=== PATIENT | male | born 1980 | race African-American/Black ===

== ENCOUNTER 2022-10-26 03:06 | Emergency (ER) | payer BC ==
[2022-10-26] MEDS ORDERED: HYDROmorphone 1 MG/ML Syringe IM ONE (03:26)
[2022-10-26] MEDS ORDERED: Ketorolac 60 MG/2 ML SDV IM ONE (03:26)
[2022-10-26] MEDS ORDERED: Cyclobenzaprine 10 MG Tab PO ONE (03:27)
[2022-10-26] MEDS ORDERED: HYDROmorphone 1 MG/ML Syringe IVPUSH ONE ×2 (04:09→10:27)
[2022-10-26] MEDS ORDERED: Ketorolac 30 MG/ML SDV IVPUSH ONE (04:10)
[2022-10-26] MEDS ORDERED: methylPREDNISolone Sodium Succinate 125 MG/2 ML SDV IVPUSH ONE (09:29)
[2022-10-26] MEDS ORDERED: HYDROmorphone 0.5 MG/0.5 ML Syringe IVPUSH ONE (09:29)
== END 2022-10-26 10:00 | disposition home or self-care (01) ==
LOC: JD.ED 03:06
DX: M54.16 Radiculopathy, lumbar region (principal); Z88.0 Allergy status to penicillin
CPT/HCPCS: 72100; 72148; 96374; 96375; 96376; 99284; A9270; J1170; J1885; J2930; J3360

== ENCOUNTER 2025-10-01 05:20 | Inpatient (IN) | payer BC ==
[2025-10-01 05:57] LABS: BASOPHILS ABSOLUTE AUTO 0.0 K/mm3 (0.0-0.2); BASOPHILS PERCENT AUTO 0.2 % (0.0-1.0); EOSINOPHILS ABSOLUTE AUTO 0.1 K/mm3 (0.0-0.4); EOSINOPHILS PERCENT AUTO 1.6 % (0.0-6.0); IMMATURE GRAN ABSOLUTE AUTO 0.03 K/mm3 (0.00-0.05); IMMATURE GRAN PERCENT AUTO 0.4 % (0.0-0.4); LYMPHOCYTES ABSOLUTE AUTO 1.3 K/mm3 (1.0-4.8); LYMPHOCYTES PERCENT AUTO 15.1 % (24.0-44.0); MEAN PLATELET VOLUME 9.9 fl (9.4-12.4); MONOCYTES ABSOLUTE AUTO 0.9 K/mm3 (0.0-0.8); MONOCYTES PERCENT AUTO 11.2 % (0.0-8.0); NEUTROPHILS ABSOLUTE AUTO 5.9 K/mm3 (1.8-7.7); NEUTROPHILS PERCENT AUTO 71.5 % (41.0-71.0); NRBC ABSOLUTE 0.00 (0.00-0.02); NRBC PERCENT 0.0 % (0.0-0.2); PLATELET COUNT,PLT 379 K/mm3 (150-400); RED BLOOD CELL COUNT 5.39 M/mm3 (4.52-5.90); WHITE BLOOD CELL COUNT,WBC 8.29 K/mm3 (3.9-11.3)
[2025-10-01 06:20] LABS: BLOOD UREA NITROGEN,BUN 9.0 mg/dL (7-18); CARBON DIOXIDE,CO2 28.0 mEq/L (21-32); CHLORIDE,CL 104.0 mEq/L (98-107); CREATININE 1.2 mg/dL (0.7-1.3); EST CRCL DRUG DOSING (CG) 92.91 mL/min; ESTIMATED GFR 76.0 mL/min (>60); GLUCOSE RANDOM 117.0 mg/dL (70-99); POTASSIUM,K 3.4 mEq/L (3.5-5.1); SODIUM,NA 143.0 mEq/L (136-145); TROPONIN I HIGH SENSITIVITY 30.0 pg/mL (<=76)
[2025-10-01] MEDS: Sodium Chloride 0.9% 10 ML Syringe FLUSH PRN (07:17)
[2025-10-01] MEDS: hydrALAZINE 20 MG/ML SDV IVPUSH ONE (07:17)
[2025-10-01] MEDS: Labetalol 100 MG/20 ML MDV IVPUSH ONE (09:15)
[2025-10-01 10:38] LABS: TSH 1.214 uIU/mL (0.358-3.74)
[2025-10-01 11:34] LABS: APPEARANCE,URINE CLEAR (Clear); GLUCOSE,URINE NEGATIVE (Negative); OCCULT BLOOD,URINE NEGATIVE (Negative)
[2025-10-01 11:55] LABS: SQUAMOUS EPITHELIAL CELLS,UR 0-5 /hpf (0-5)
[2025-10-01] MEDS: Labetalol 100 MG/20 ML MDV IVPUSH PRN (17:09)
[2025-10-02 04:52] LABS: BASOPHILS ABSOLUTE AUTO 0.0 K/mm3 (0.0-0.2); BASOPHILS PERCENT AUTO 0.6 % (0.0-1.0); EOSINOPHILS ABSOLUTE AUTO 0.1 K/mm3 (0.0-0.4); EOSINOPHILS PERCENT AUTO 1.4 % (0.0-6.0); IMMATURE GRAN ABSOLUTE AUTO 0.03 K/mm3 (0.00-0.05); IMMATURE GRAN PERCENT AUTO 0.5 % (0.0-0.4); LYMPHOCYTES ABSOLUTE AUTO 1.0 K/mm3 (1.0-4.8); LYMPHOCYTES PERCENT AUTO 16.5 % (24.0-44.0); MEAN PLATELET VOLUME 10.3 fl (9.4-12.4); MONOCYTES ABSOLUTE AUTO 1.0 K/mm3 (0.0-0.8); MONOCYTES PERCENT AUTO 15.7 % (0.0-8.0); NEUTROPHILS ABSOLUTE AUTO 4.1 K/mm3 (1.8-7.7); NEUTROPHILS PERCENT AUTO 65.3 % (41.0-71.0); NRBC ABSOLUTE 0.00 (0.00-0.02); NRBC PERCENT 0.0 % (0.0-0.2); PLATELET COUNT,PLT 353 K/mm3 (150-400); RED BLOOD CELL COUNT 5.17 M/mm3 (4.52-5.90); WHITE BLOOD CELL COUNT,WBC 6.24 K/mm3 (3.9-11.3)
[2025-10-02 05:27] LABS: A/G RATIO 1.0 (1-2); ALANINE AMINOTRANSFERASE,ALT 38.0 U/L (16-63); ASPARTATE AMNIOTRANSFERASE,AST 15.0 U/L (15-37); BILIRUBIN TOTAL 0.5 mg/dL (0.2-1.0); BLOOD UREA NITROGEN,BUN 8.0 mg/dL (7-18); CARBON DIOXIDE,CO2 25.0 mEq/L (21-32); CHLORIDE,CL 107.0 mEq/L (98-107); CHOLESTEROL HDL 39.0 mg/dL (40-59); CHOLESTEROL LDL DIRECT 133.0 mg/dL (<100); CHOLESTEROL TOTAL 198.0 mg/dL (<200); CREATININE 1.1 mg/dL (0.7-1.3); EST CRCL DRUG DOSING (CG) 98.6 mL/min; ESTIMATED GFR 84.0 mL/min (>60); GLUCOSE RANDOM 108.0 mg/dL (70-99); POTASSIUM,K 3.7 mEq/L (3.5-5.1); PROTEIN TOTAL,TP 7.4 g/dl (6.4-8.2); SODIUM,NA 141.0 mEq/L (136-145)
[2025-10-02] MEDS: NIFEdipine 30 MG Tab.ER PO ONE (15:22)
== END 2025-10-02 17:40 | disposition home or self-care (01) | DRG 199 ==
LOC: JD.ED 05:20 → JD.ICU 10:02
PROVIDERS: ADMIT Family Medicine; ATTEND Family Medicine
DX: I16.1 Hypertensive emergency (principal); H54.7 Unspecified visual loss; M54.9 Dorsalgia, unspecified; G89.29 Other chronic pain; E66.9 Obesity, unspecified; Z88.0 Allergy status to penicillin; Z79.899 Other long term (current) drug therapy; Z68.34 Body mass index [BMI] 34.0-34.9, adult; Z86.16 Personal history of COVID-19
CPT/HCPCS: 36410; 36415; 70450; 70450-26; 71045; 71045-26; 80048; 80053; 80061; 81001; 82088; 83036; 83735; 83880; 84244; 84443; 84484; 85025; 93005; 93306; 96374; 96375; 99285-25; A9270-GY; J0360; J1650; J1920; J2404; J7050

== ENCOUNTER 2025-10-08 08:42 | Emergency (ER) | payer BC ==
[2025-10-08] MEDS ORDERED: Sodium Chloride 0.9% 10 ML Syringe FLUSH PRN (10:54)
[2025-10-08 11:30] LABS: APPEARANCE,URINE CLEAR (Clear); BASOPHILS ABSOLUTE AUTO 0.0 K/mm3 (0.0-0.2); BASOPHILS PERCENT AUTO 0.4 % (0.0-1.0); EOSINOPHILS ABSOLUTE AUTO 0.1 K/mm3 (0.0-0.4); EOSINOPHILS PERCENT AUTO 1.7 % (0.0-6.0); GLUCOSE,URINE NEGATIVE (Negative); IMMATURE GRAN ABSOLUTE AUTO 0.02 K/mm3 (0.00-0.05); IMMATURE GRAN PERCENT AUTO 0.4 % (0.0-0.4); LYMPHOCYTES ABSOLUTE AUTO 2.0 K/mm3 (1.0-4.8); LYMPHOCYTES PERCENT AUTO 43.0 % (24.0-44.0); MEAN PLATELET VOLUME 9.8 fl (9.4-12.4); MONOCYTES ABSOLUTE AUTO 0.5 K/mm3 (0.0-0.8); MONOCYTES PERCENT AUTO 11.4 % (0.0-8.0); NEUTROPHILS ABSOLUTE AUTO 2.0 K/mm3 (1.8-7.7); NEUTROPHILS PERCENT AUTO 43.1 % (41.0-71.0); NRBC ABSOLUTE 0.00 (0.00-0.02); NRBC PERCENT 0.0 % (0.0-0.2); OCCULT BLOOD,URINE NEGATIVE (Negative); PLATELET COUNT,PLT 378 K/mm3 (150-400); RED BLOOD CELL COUNT 5.16 M/mm3 (4.52-5.90); WHITE BLOOD CELL COUNT,WBC 4.74 K/mm3 (3.9-11.3)
[2025-10-08] MEDS: Sodium Chloride 0.9% 10 ML Syringe FLUSH ONE (11:30)
[2025-10-08] MEDS: Iopamidol 755 Mg/ML 100 ML Bottle IVPUSH ONE (11:30)
[2025-10-08 11:39] LABS: BUPRENORPHINE SCREEN,URINE NEGATIVE (CUTOFF=10); METHADONE SCREEN, URINE NEGATIVE (CUT0FF=200); METHAMPHETAMINES SCREEN, URINE NEGATIVE (CUTOFF=500); OXYCODONE SCREEN,URINE NEGATIVE (CUT0FF=100); THC SCREEN,URINE 20 NG/ML PRESUMPTIVE POSITIVE (CUTOFF=50)
[2025-10-08 11:44] LABS: AMPHETAMINES SCREEN, URINE NEGATIVE (CUTOFF=500)
[2025-10-08 12:02] LABS: A/G RATIO 1.1 (1-2); ALANINE AMINOTRANSFERASE,ALT 70.0 U/L (16-63); ASPARTATE AMNIOTRANSFERASE,AST 29.0 U/L (15-37); BILIRUBIN TOTAL 0.4 mg/dL (0.2-1.0); BLOOD UREA NITROGEN,BUN 22.0 mg/dL (7-18); CARBON DIOXIDE,CO2 32.0 mEq/L (21-32); CHLORIDE,CL 102.0 mEq/L (98-107); CREATININE 1.3 mg/dL (0.7-1.3); EST CRCL DRUG DOSING (CG) 83.43 mL/min; ESTIMATED GFR 69.0 mL/min (>60); GLUCOSE RANDOM 86.0 mg/dL (70-99); POTASSIUM,K 3.7 mEq/L (3.5-5.1); PROTEIN TOTAL,TP 7.3 g/dl (6.4-8.2); SODIUM,NA 142.0 mEq/L (136-145); TROPONIN I HIGH SENSITIVITY 27.0 pg/mL (<=76)
[2025-10-08 12:25] LABS: TSH 2.112 uIU/mL (0.358-3.74)
[2025-10-08] MEDS: Labetalol 100 MG/20 ML MDV IVPUSH ONE (17:38)
== END 2025-10-08 17:42 ==
LOC: JD.ED 08:42
DX: R55 Syncope and collapse (principal); I10 Essential (primary) hypertension; I51.7 Cardiomegaly; Z88.0 Allergy status to penicillin; Z79.899 Other long term (current) drug therapy; Z86.16 Personal history of COVID-19
CPT/HCPCS: 36415; 70450; 70496; 70498; 71045; 80053; 80306; 81003; 83735; 83880; 84443; 84484; 85025; 93005; 96361; 96374; 99285; J1920; J7030; Q9967